=== PATIENT | female | born 1955 | race Caucasian/White ===

== ENCOUNTER → 2020-11-04 11:15 | Outpatient (CLI) | payer OTHER, MEDICARE, SELFPAY ==
[2020-11-04 12:02] LABS: Basophils # 0.1 K/mm3 (0-0.2); Basophils % 0.5 % (0.1-2.0); Eosinophils # 0.4 K/mm3 (0.0-0.4); Eosinophils % 3.9 % (0.1-12.0); Hemoglobin 14.9 g/dL (12.2-16.2); Lymphocytes # 2.1 K/mm3 (0.7-4.5); Lymphocytes % 20.4 % (10-50); Mean Corpuscular HGB Conc 33.2 g/dL (31.8-35.4); Mean Corpuscular Hemoglobin 26.2 pg (27.0-31.2); Mean Corpuscular Volume 79.1 fl (81-99); Mean Platelet Volume 7.8 fl (7.4-10.4); Monocytes # 0.5 K/mm3 (0.1-1.0); Neutrophils # 7.2 K/mm3 (1.8-7.8); Neutrophils % 70.2 % (37.0-80.0); Platelet Count 339 K/mm3 (142-424); Red Blood Count 5.69 M/mm3 (4.20-5.40); Red Cell Distribution Width 15.2 % (11.5-17.5); White Blood Count 10.3 K/mm3 (4.8-10.8)
== END ==
PROVIDERS: PCP Family Medicine; Visit Provider Nurse Practitioner
DX: Z20.822 Contact with and (suspected) exposure to COVID-19 (principal)
CPT/HCPCS: 36415; 85025; 87275; 87276; U0003

== ENCOUNTER → 2022-06-08 15:25 | Outpatient (CLI) | payer OTHER, MEDICARE, SELFPAY ==
[2022-06-08 18:59] LABS: Alanine Aminotransferase 16 U/L (12-78); Albumin Level 4.1 g/dl (3.5-5.0); Albumin/Globulin Ratio 1.4 (1.1-1.8); Alkaline Phosphatase 151 U/L (38-126); Anion Gap 17.1 mEq/L (5-15); Aspartate Amino Transferase 23 U/L (14-36); Bilirubin,Total 0.5 mg/dl (0.2-1.3); Blood Urea Nitrogen 12 mg/dl (7-17); Calcium 8.9 mg/dl (8.4-10.2); Carbon Dioxide 29 mmol/L (22.0-30.0); Chloride 97 mmol/L (98-107); Chol/HDL Ratio 4.3 (1-3.5); Cholesterol 154 mg/dl (140-200); Estimated Glomerular Filt Rate 99 ml/min (>60); GFR (African American) 120 ML/MIN (>60); Globulin 2.9 g/dL (1.3-3.2); Glucose 145 mg/dl (74-100); HDL Cholesterol 36 mg/dl (40-60); Potassium 5.1 mmoL/L (3.5-5.1); Sodium 138 mmol/L (136-145); Triglycerides 186 mg/dl (30-150); VLDL Cholesterol 37 mg/dL (0-40)
[2022-06-08 19:10] LABS: Direct LDL Cholesterol 88.03 mg/dL (100-129)
[2022-06-08 19:31] LABS: Thyroid Stimulating Hormone 3.65 uIU/mL (0.465-4.68)
[2022-06-08 19:44] LABS: Hemoglobin A1C 6.6 % (4.0-6.0)
[2022-06-08 19:49] LABS: Vitamin B12 261 pg/mL (239-931)
[2022-06-08 20:19] LABS: Basophils # 0.1 K/mm3 (0-0.2); Basophils % 0.8 % (0.1-2.0); Eosinophils # 0.2 K/mm3 (0.0-0.4); Hematocrit 43.8 % (37.0-47.0); Hemoglobin 14.4 g/dL (12.2-16.2); Lymphocytes # 1.2 K/mm3 (0.7-4.5); Lymphocytes % 16.8 % (10-50); Mean Corpuscular HGB Conc 32.7 g/dL (31.8-35.4); Mean Corpuscular Hemoglobin 26.9 pg (27.0-31.2); Mean Corpuscular Volume 82.1 fl (81-99); Mean Platelet Volume 10.1 fl (7.4-10.4); Monocytes # 0.5 K/mm3 (0.1-1.0); Monocytes % 6.5 % (1.7-9.3); Neutrophils # 5.4 K/mm3 (1.8-7.8); Neutrophils % 72.9 % (37.0-80.0); Platelet Count 255 K/mm3 (142-424); Red Blood Count 5.34 M/mm3 (4.20-5.40); Red Cell Distribution Width 15.7 % (11.5-17.5); White Blood Count 7.4 K/mm3 (4.8-10.8)
== END ==
PROVIDERS: PCP Nurse Practitioner; Visit Provider Nurse Practitioner
DX: E11.9 Type 2 diabetes mellitus without complications (principal); E78.5 Hyperlipidemia, unspecified; I10 Essential (primary) hypertension; Z79.84 Long term (current) use of oral hypoglycemic drugs
CPT/HCPCS: 80053; 80061; 82607; 83036; 84443; 85025

== ENCOUNTER → 2022-07-23 08:35 | Outpatient (CLI) | payer OTHER, MEDICARE, SELFPAY ==
[2022-07-23 18:22] LABS: Adenovirus,PCR Not Detected (NotDetected); Bordetella Pertussis Not Detected (NotDetected); Chlamydophila Pneumoniae, PCR Not Detected (NotDetected); Coronavirus 19, PCR Not Detected (NotDetected); Coronavirus 229E Not Detected (NotDetected); Coronavirus NL63 Not Detected (NotDetected); Coronavirus OC43 Not Detected (NotDetected); Coronovirus HKU1,PCR Not Detected (NotDetected); Human Metapneumovirus Not Detected (NotDetected); Influenza A, PCR Not Detected (NotDetected); Influenza AH1, 2009 Not Detected (NotDetected); Influenza AH1, PCR Not Detected (NotDetected); Influenza AH3,PCR Not Detected (NotDetected); Influenza B, PCR Not Detected (NotDetected); Mycoplasma Pneumoniae, PCR Not Detected (NotDetected); Parainfluenza 1, PCR Not Detected (NotDetected); Parainfluenza 2, PCR Not Detected (NotDetected); Parainfluenza 3, PCR Not Detected (NotDetected); Parainfluenza 4, PCR Not Detected (NotDetected); Rhinovirus/Enterovirus Not Detected (NotDetected)
[2022-07-24 15:24] LABS: Respiratory Syncytial Virus Detected (NotDetected)
== END ==
PROVIDERS: PCP Nurse Practitioner; Visit Provider Nurse Practitioner
DX: J06.9 Acute upper respiratory infection, unspecified (principal); B97.4 Respiratory syncytial virus as the cause of diseases classified elsewhere; R53.83 Other fatigue; H66.92 Otitis media, unspecified, left ear; R05.9 Cough, unspecified; R06.2 Wheezing
CPT/HCPCS: 87581; 87632; 87798; C9803; U0003; U0005

== ENCOUNTER → 2022-08-04 12:10 | Outpatient (CLI) | payer OTHER, MEDICARE, SELFPAY ==
[2022-08-04 18:32] LABS: Adenovirus,PCR Not Detected (NotDetected); Bordetella Pertussis Not Detected (NotDetected); Chlamydophila Pneumoniae, PCR Not Detected (NotDetected); Coronavirus 19, PCR Not Detected (NotDetected); Coronavirus 229E Not Detected (NotDetected); Coronavirus NL63 Not Detected (NotDetected); Coronavirus OC43 Not Detected (NotDetected); Coronovirus HKU1,PCR Not Detected (NotDetected); Human Metapneumovirus Not Detected (NotDetected); Influenza A, PCR Not Detected (NotDetected); Influenza AH1, 2009 Not Detected (NotDetected); Influenza AH1, PCR Not Detected (NotDetected); Influenza AH3,PCR Not Detected (NotDetected); Influenza B, PCR Not Detected (NotDetected); Mycoplasma Pneumoniae, PCR Not Detected (NotDetected); Parainfluenza 1, PCR Not Detected (NotDetected); Parainfluenza 2, PCR Not Detected (NotDetected); Parainfluenza 3, PCR Not Detected (NotDetected); Parainfluenza 4, PCR Not Detected (NotDetected); Rhinovirus/Enterovirus Not Detected (NotDetected)
[2022-08-04 18:43] LABS: Basophils % 0.3 % (0.1-2.0); Eosinophils # 0.1 K/mm3 (0.0-0.4); Eosinophils % 0.7 % (0.1-12.0); Hematocrit 46.1 % (37.0-47.0); Hemoglobin 15.2 g/dL (12.2-16.2); Lymphocytes # 1.4 K/mm3 (0.7-4.5); Lymphocytes % 10.2 % (10-50); Mean Corpuscular HGB Conc 32.9 g/dL (31.8-35.4); Mean Corpuscular Hemoglobin 27.1 pg (27.0-31.2); Mean Corpuscular Volume 82.3 fl (81-99); Mean Platelet Volume 10.3 fl (7.4-10.4); Monocytes # 0.9 K/mm3 (0.1-1.0); Monocytes % 6.4 % (1.7-9.3); Neutrophils # 11.3 K/mm3 (1.8-7.8); Neutrophils % 82.3 % (37.0-80.0); Platelet Count 276 K/mm3 (142-424); Red Blood Count 5.61 M/mm3 (4.20-5.40); Red Cell Distribution Width 15.7 % (11.5-17.5); White Blood Count 13.7 K/mm3 (4.8-10.8)
[2022-08-05 06:58] LABS: Respiratory Syncytial Virus Detected (NotDetected)
== END ==
PROVIDERS: PCP Nurse Practitioner; Visit Provider Nurse Practitioner
DX: J06.9 Acute upper respiratory infection, unspecified (principal); J21.0 Acute bronchiolitis due to respiratory syncytial virus
CPT/HCPCS: 85025; 87581; 87632; 87798; C9803; U0003; U0005

== ENCOUNTER → 2023-05-17 09:56 | Outpatient (CLI) | payer MEDICARE, SELFPAY ==
[2023-05-17 18:19] LABS: Basophils % 0.3 % (0.1-2.0); Eosinophils # 0.2 K/mm3 (0.0-0.4); Hematocrit 48.2 % (37.0-47.0); Lymphocytes # 1.1 K/mm3 (0.7-4.5); Lymphocytes % 13.6 % (10-50); Mean Corpuscular HGB Conc 31.2 g/dL (31.8-35.4); Mean Corpuscular Hemoglobin 25.3 pg (27.0-31.2); Mean Corpuscular Volume 81.1 fl (81-99); Mean Platelet Volume 9.8 fl (7.4-10.4); Monocytes # 0.5 K/mm3 (0.1-1.0); Monocytes % 6.3 % (1.7-9.3); Neutrophils # 6.1 K/mm3 (1.8-7.8); Neutrophils % 76.8 % (37.0-80.0); Platelet Count 255 K/mm3 (142-424); Red Blood Count 5.93 M/mm3 (4.20-5.40); Red Cell Distribution Width 16.2 % (11.5-17.5)
[2023-05-17 18:37] LABS: Alanine Aminotransferase 21 U/L (12-78); Albumin Level 4.1 g/dl (3.5-5.0); Albumin/Globulin Ratio 1.2 (1.1-1.8); Alkaline Phosphatase 110 U/L (38-126); Anion Gap 12.8 mEq/L (5-15); Aspartate Amino Transferase 26 U/L (14-36); Bilirubin,Total 0.5 mg/dl (0.2-1.3); Blood Urea Nitrogen 11 mg/dl (7-17); Calcium 9.1 mg/dl (8.4-10.2); Carbon Dioxide 29 mmol/L (22.0-30.0); Chloride 102 mmol/L (98-107); Chol/HDL Ratio 4.6 (1-3.5); Cholesterol 156 mg/dl (140-200); Estimated Glomerular Filt Rate 122 ml/min (>60); GFR (African American) 148 ML/MIN (>60); Globulin 3.4 g/dL (1.3-3.2); Glucose 140 mg/dl (74-100); HDL Cholesterol 34 mg/dl (40-60); Potassium 4.8 mmoL/L (3.5-5.1); Sodium 139 mmol/L (136-145); Total Protein,Serum 7.5 g/dl (6.3-8.2); Triglycerides 182 mg/dl (30-150); VLDL Cholesterol 36 mg/dL (0-40)
[2023-05-17 18:48] LABS: Direct LDL Cholesterol 90.69 mg/dL (100-129)
[2023-05-17 19:05] LABS: Thyroid Stimulating Hormone 2.93 uIU/mL (0.465-4.68)
[2023-05-17 19:24] LABS: Vitamin B12 307 pg/mL (239-931)
[2023-05-17 19:31] LABS: Creatinine,Urine Random 106 mg/dL (Not Estab.)
[2023-05-17 19:32] LABS: Microalbumin/Creatinine Ratio 19.4
[2023-05-17 19:47] LABS: Hemoglobin A1C 6.3 % (4.0-6.0)
== END ==
PROVIDERS: PCP Nurse Practitioner; Visit Provider Nurse Practitioner
DX: E11.40 Type 2 diabetes mellitus with diabetic neuropathy, unspecified (principal); E78.5 Hyperlipidemia, unspecified; I10 Essential (primary) hypertension; J30.9 Allergic rhinitis, unspecified; Z79.84 Long term (current) use of oral hypoglycemic drugs
CPT/HCPCS: 80053; 80061; 82043; 82570; 82607; 83036; 84443; 85025

== ENCOUNTER 2024-03-13 10:21 | Outpatient (CLI) | payer MEDICARE, SELFPAY ==
[2024-03-13 18:33] LABS: Basophils % 0.2 % (0.1-2.0); Eosinophils # 0.1 K/mm3 (0.0-0.4); Eosinophils % 1.8 % (0.1-12.0); Hemoglobin 14.2 g/dL (12.2-16.2); Lymphocytes # 0.9 K/mm3 (0.7-4.5); Lymphocytes % 11.4 % (10-50); Mean Corpuscular HGB Conc 32.2 g/dL (31.8-35.4); Mean Corpuscular Volume 83.8 fl (81-99); Mean Platelet Volume 10.1 fl (7.4-10.4); Monocytes # 0.5 K/mm3 (0.1-1.0); Monocytes % 6.4 % (1.7-9.3); Neutrophils # 6.2 K/mm3 (1.8-7.8); Neutrophils % 80.3 % (37.0-80.0); Platelet Count 279 K/mm3 (142-424); Red Blood Count 5.25 M/mm3 (4.20-5.40); Red Cell Distribution Width 15.8 % (11.5-17.5); White Blood Count 7.7 K/mm3 (4.8-10.8)
[2024-03-13 19:38] LABS: Creatinine,Urine Random 128 mg/dL (Not Estab.); Hemoglobin A1C 6.8 % (4.0-6.0)
[2024-03-13 22:02] LABS: Alanine Aminotransferase 20 U/L (12-78); Albumin Level 3.7 g/dl (3.5-5.0); Albumin/Globulin Ratio 1.1 (1.1-1.8); Alkaline Phosphatase 116 U/L (38-126); Anion Gap 12.2 mEq/L (5-15); Aspartate Amino Transferase 25 U/L (14-36); Bilirubin,Total 0.6 mg/dl (0.2-1.3); Blood Urea Nitrogen 10 mg/dl (7-17); Calcium 9.1 mg/dl (8.4-10.2); Carbon Dioxide 28 mmol/L (22.0-30.0); Chloride 100 mmol/L (98-107); Chol/HDL Ratio 3.7 (1-3.5); Cholesterol 134 mg/dl (140-200); Estimated Glomerular Filt Rate 122 ml/min (>60); GFR (African American) 148 ML/MIN (>60); Globulin 3.3 g/dL (1.3-3.2); Glucose 142 mg/dl (74-100); HDL Cholesterol 36 mg/dl (40-60); Potassium 4.2 mmoL/L (3.5-5.1); Sodium 136 mmol/L (136-145); Triglycerides 186 mg/dl (30-150); VLDL Cholesterol 37 mg/dL (0-40)
[2024-03-13 22:13] LABS: Direct LDL Cholesterol 66.33 mg/dL (100-129)
[2024-03-13 22:51] LABS: Vitamin B12 276 pg/mL (239-931)
== END 2024-03-13 23:59 | disposition home or self-care (01) ==
LOC: LAB.DROPOF 03-14 10:21
PROVIDERS: PCP Nurse Practitioner; Visit Provider Nurse Practitioner
DX: E11.9 Type 2 diabetes mellitus without complications (principal); E78.5 Hyperlipidemia, unspecified; I10 Essential (primary) hypertension; J30.9 Allergic rhinitis, unspecified
CPT/HCPCS: 80050; 80053; 80061; 82043; 82570; 82607; 83036; 84443; 85025

== ENCOUNTER 2024-04-19 12:08 | Outpatient (CLI) | payer MEDICARE, SELFPAY ==
[2024-04-19 18:22] LABS: Coronavirus 19, PCR Not Detected (NotDetected); Influenza A, PCR Not Detected (NotDetected); Influenza B, PCR Not Detected (NotDetected)
== END 2024-04-19 23:59 | disposition home or self-care (01) ==
LOC: LAB.DROPOF 04-20 10:13
PROVIDERS: PCP Nurse Practitioner; Visit Provider Nurse Practitioner
DX: J06.9 Acute upper respiratory infection, unspecified (principal)
CPT/HCPCS: 87636

== ENCOUNTER 2024-08-15 14:15 | Outpatient (CLI) | payer MEDICARE, SELFPAY ==
[2024-08-15 18:20] LABS: Alanine Aminotransferase 23 U/L (12-78); Albumin/Globulin Ratio 1.4 (1.1-1.8); Alkaline Phosphatase 111 U/L (38-126); Amylase 49 U/L (30-110); Anion Gap 13.4 mEq/L (5-15); Aspartate Amino Transferase 33 U/L (14-36); Bilirubin,Total 0.7 mg/dl (0.2-1.3); Blood Urea Nitrogen 12 mg/dl (7-17); Calcium 8.8 mg/dl (8.4-10.2); Carbon Dioxide 30 mmol/L (22.0-30.0); Chloride 93 mmol/L (98-107); Estimated Glomerular Filt Rate 99 ml/min (>60); GFR (African American) 120 ML/MIN (>60); Globulin 2.8 g/dL (1.3-3.2); Glucose 101 mg/dl (74-100); Lipase 109 U/L (23-300); Potassium 4.4 mmoL/L (3.5-5.1); Sodium 132 mmol/L (136-145); Total Protein,Serum 6.8 g/dl (6.3-8.2)
[2024-08-15 18:23] LABS: Basophils % 0.2 % (0.1-2.0); Eosinophils % 0.7 % (0.1-12.0); Hematocrit 44.9 % (37.0-47.0); Hemoglobin 14.5 g/dL (12.2-16.2); Lymphocytes # 0.8 K/mm3 (0.7-4.5); Lymphocytes % 13.7 % (10-50); Mean Corpuscular HGB Conc 32.3 g/dL (31.8-35.4); Mean Corpuscular Hemoglobin 25.1 pg (27.0-31.2); Mean Corpuscular Volume 77.8 fl (81-99); Mean Platelet Volume 10.6 fl (7.4-10.4); Monocytes # 0.5 K/mm3 (0.1-1.0); Monocytes % 7.5 % (1.7-9.3); Neutrophils # 4.7 K/mm3 (1.8-7.8); Neutrophils % 77.4 % (37.0-80.0); Platelet Count 220 K/mm3 (142-424); Red Blood Count 5.77 M/mm3 (4.20-5.40); Red Cell Distribution Width 15.9 % (11.5-17.5)
== END 2024-08-15 23:59 | disposition home or self-care (01) ==
LOC: LAB.DROPOF 08-16 13:52
PROVIDERS: PCP Nurse Practitioner; Visit Provider Nurse Practitioner
DX: R19.7 Diarrhea, unspecified (principal); R10.9 Unspecified abdominal pain
CPT/HCPCS: 80053; 82150; 83690; 85025; 87086

== ENCOUNTER 2025-06-04 10:05 | Outpatient (CLI) | payer MEDICARE, SELFPAY ==
[2025-06-04 16:17] LABS: Hematocrit 43.3 % (37.0-47.0); Hemoglobin 13.8 g/dL (12.2-16.2); Immature Granulocytes % 0.4 %; Mean Corpuscular HGB Conc 31.9 g/dL (31.8-35.4); Mean Corpuscular Hemoglobin 26.0 pg (27.0-31.2); Mean Corpuscular Volume 81.7 fl (81-99); Nucleated Red Blood Cells % 0 %; Platelet Count 247 K/mm3 (142-424); Red Blood Count 5.30 M/mm3 (4.20-5.40); Red Cell Distribution Width-SD 47.7 fL; White Blood Count 7.5 K/mm3 (4.8-10.8)
[2025-06-04 17:36] LABS: Alanine Aminotransferase 16 U/L (12-78); Albumin Level 3.3 g/dl (3.5-5.0); Albumin/Globulin Ratio 1.0 (1.1-1.8); Alkaline Phosphatase 123 U/L (38-126); Anion Gap 11.4 mEq/L (5-15); Aspartate Amino Transferase 21 U/L (14-36); Bilirubin,Total 0.6 mg/dl (0.2-1.3); Blood Urea Nitrogen 12 mg/dl (7-17); Calcium 8.8 mg/dl (8.4-10.2); Carbon Dioxide 28 mmol/L (22.0-30.0); Chloride 99 mmol/L (98-107); Cholesterol 139 mg/dl (140-200); Creatinine,Serum 0.60 mg/dl (0.52-1.04); Estimated Glomerular Filt Rate 99 ml/min (>60); GFR (African American) 119 ML/MIN (>60); Globulin 3.3 g/dL (1.3-3.2); Glucose 132 mg/dl (74-100); HDL Cholesterol 34 mg/dl (40-60); Potassium 4.4 mmoL/L (3.5-5.1); Sodium 134 mmol/L (136-145); Total Protein,Serum 6.6 g/dl (6.3-8.2); Triglycerides 160 mg/dl (30-150)
[2025-06-04 18:06] LABS: Thyroid Stimulating Hormone 2.18 uIU/mL (0.465-4.68)
[2025-06-04 18:25] LABS: Vitamin B12 240 pg/mL (239-931)
[2025-06-05 03:20] LABS: Hemoglobin A1C 6.2 % (4.0-6.0)
[2025-06-05 10:04] LABS: Hepatitis C Ab Qual. W/ RFX NEGATIVE (Negative)
--- OUTSIDE RECORDS SUMMARY | 2025-06-05 10:37 | XMS_ITS | Clinical Summary ---
Author Organization [facility] Address [facility] [place] [address] Phone Care Team Providers Care Manager Sterile Processing Name Role Phone Pierre Mendoza Primary Care Provider [phone] Allergies Active Allergy Reactions Criticality Noted Date Comments Amoxicillin Nausea And Vomiting 09/22/2013 Cefdinir Anaphylaxis High 07/07/2024 Xame to ER and treated for allergic reaction Medications metoprolol (LOPRESSOR) 50 mg tablet Take by mouth 2 times daily. Active metFORMIN (GLUCOPHAGE) 500 mg tablet Take 1,000 mg by mouth 2 times daily. Active ezetimibe (ZETIA) 10 mg Oral Tablet Take 10 mg by mouth daily. Active cetirizine HCl/pseudoephed rine (ZYRTEC-D ORAL) Take 5 mg by mouth daily. afternoon Active simvastatin (ZOCOR) 20 mg Oral Tablet Take 20 mg by mouth nightly. Active hydrOXYzine (ATARAX) 25 mg Oral Tablet Take 25 mg by mouth every 6 hours as needed for Itching. Active fluticasone propionate (FLONASE NASL) by Nasal route nightly. Active difluprednate (DUREZOL) 0.05 % Opht Drops Place 1 Drop into the left eye 2 times daily. Can substitute Inveltys or Prednisolone 1 mL Active Additional Information Patient not taking.Reason: Pt electing to not take the medication, Reported on 07/07/2024 nepafenac (ILEVRO) 0.3 % Opht Drops, Suspension Place 1 Drop into the left eye daily. Can substitute Bromsite or Prolensa 3 mL 0 Active Additional Information Patient not taking.Reason: Pt electing to not take the medication, Reported on 07/07/2024 nepafenac (ILEVRO) 0.3 % Opht Drops, Suspension Place 1 Drop into the right eye daily. Can substitute Bromsite or Prolensa 3 mL 0 Active Additional Information Patient not taking.Reason: Pt electing to not take the medication, Reported on 07/07/2024 difluprednate (DUREZOL) 0.05 % Opht Drops Place 1 Drop into the right eye 2 times daily. Can substitute Inveltys or Prednisolone 1 mL 0 Active Additional Information Patient not taking.Reason: Pt electing to not take the medication, Reported on 07/07/2024 promethazine-de xtromethorphan (PROMETHAZINE-D M) 6.25-15 mg/5 mL Oral SyrupIndication s:Acute cough Take 5 mL by mouth every 6 hours as needed (for cough). 150 mL 4 Active EPINEPHrine (EPIPEN) 0.3 mg/0.3 mL Inj Auto-Injector Inject 0.3 mL into the muscle as needed for Anaphylaxis. Inject the contents of one pen (0.3 mL) into the muscle in the middle of the outer thigh as directed for anaphylaxis.Ca ll 911 after administering. May repeat dose in 5-15 minutes if symptoms persist or worsen. 2 Each 4 Active Active Problems No known active problems Immunizations Immunization Administration Dates Next Due Influenza High Dose 05/22/2024, 2,04/30/2020,2018 Influenza Vaccine Quadrivalent 05/13/2018,2016 Pneumococcal Conjugate Vacci ne 13 Valent 08/22/2020 Quadrivalent Influenza High Dose 06/14/2023,03/2021 Tdap 08/18/2018 Surgical History Surgery Date Site/Laterality Comments CHOLECYSTECTOMY 08/09/1998 - 08/08/1999 KIDNEY STONE SURGERY WISDOM TOOTH EXTRACTION TONSILLECTOMY AND ADENOIDECTOMY 08/09/1960 - 08/08/1961 CATARACT REMOVAL 07/03/2020 Left LEFT EYE CATARACT EXTRACTION WITH PHACOEMULSIFICATION AND INTRAOCULAR LENS; Surgeon: Cesar Fletcher MD; Location: [facility]; Service: Ophthalmology Medical devices from this surgery are in the Medical Devices section. CATARACT REMOVAL 07/17/2020 Right RIGHT EYE CATARACT EXTRACTION WITH PHACOEMULSIFICATION AND INTRAOCULAR LENS; Surgeon: Cesar Fletcher MD; Location: [facility]; Service: Ophthalmology Medical devices from this surgery are in the Medical Devices section. Medical History Medical History Date Comments Hypertension Chronic UTI History of kidney stones Diabetes mellitus (HCC) Hyperlipidemia Anxiety Family History Medical History Relation Name Comments Heart Attack Maternal Grandfather Cancer Maternal Grandmother bladder Heart Attack Mother Leukemia Paternal Grandmother Relation Name Status Comments Father Maternal Grandfather Maternal Grandmother Mother Paternal Grandfather Paternal Grandmother Social History Tobacco Use Types Packs/Day Years Used Date Smoking Tobacco: Every Day Cigarettes 1 47 Smokeless Tobacco: Never Tobacco Cessation:Counseling Given: Yes Alcohol Use Standard Drinks/Week Comments No 0 (1 standard drink = 0.6 oz pur e alcohol) Sexually Active Control Partners Comments Yes Male Comments No Sex and Gender Information Value Date Recorded Sex Assigned at Not on file Legal Sex Female 12:21 AM EDT Gender Identity Not on file Sexual Orientation Not on file Obstetrics History Para Term AB IAB SAB Ectopic Multiple Livin g Live Births 0 Last Filed Vital Signs Vital Sign Reading Time Taken Comments Blood Pressure 142/70 07/07/2024 5:44 PM EST Pulse 98 07/07/2024 6:05 PM EST Temperature 36.8 C (98.3 F) 07/07/2024 5:44 PM EST Respiratory Rate 20 07/07/2024 6:05 PM EST Oxygen Saturation 95% 07/07/2024 6:05 PM EST Inhaled Oxygen Concentration - - Weight 83.5 kg (184 lb) 07/07/2024 3:35 PM EST Height 177.8 cm (5' 10 ) 07/07/2024 3:35 PM EST Body Mass Index 26.4 07/07/2024 3:35 PM EST Plan of Treatment Health Maintenance Due Date Last Done Comments Wellness Exam Medicare 1958 Hepatitis C Screening 1971 Cologuard 1998 FIT 1998 Sigmoidoscopy 1998 Virtual Colonography 1998 Low Dose Lung Cancer Screening 2003 Zoster (1 of 2) 2003 Pneumococcal Vaccine 50+ (2 of 2 - PPSV23, PCV20, or PCV21) 10/17/2020 08/22/2020 Colon Cancer Screening 03/17/2022 Colonoscopy 03/17/2022 03/17/2017 COVID-19 Vaccine (1 - season) 2025 Influenza Vaccine (#1) 2025 4, 06/14/2023, 05/18/2022, Additional history exists Breast Cancer Screening 07/04/2026 07/04/20 24, 04/29/2023, 04/28/2022, Additional history exists DTaP/TDaP/Td (2 - Td or Tdap) 08/18/2028 08/18/2018 Bone Density Screening Completed 11/12/2017 Diabetic Eye Exam Discontinued 06/08/2024 Hepatitis B Vaccine Aged Out No longe r eligible based on patient's age to complete this topic Meningococcal B Vaccine Aged Out No l onger eligible based on patient's age to complete this topic Medical Devices Implanted Type Area Fire Management Technician Device Identifier Shelf Expiration Date Model / Serial / Lot Lens Iol 0 D +14.5 Rita +2.25 Cyl Bcnvx 13mm 6mm Pc 1 Pc Fld - [id number] Implanted:Qty: 1 on 07/03/2020 by Cesar Fletcher MD at [facility] Left: Eye DMITRY LAB:SURG [id number] 05/08/2021 [id number] .145 / [id number] / Lens Iol 0 D +13.5 Rita +1.5 Cyl Bcnvx 13mm 6mm Pc 1 Pc Fld - [id number] Implanted:Qty: 1 on 07/17/2020 by Cesar Fletcher MD at [facility] Right: Eye DMITRY LAB:SURG [id number] 04/08/2024 [id number] / [id number] / Procedures Procedure Name Priority Date/Time Associated Diagnosis Comments MM MAMMO DIGITAL MIKE SCREEN BILAT Routine 07/04/2024 2:52 PM EST Other screening mammogram HM DIABETES EYE EXAM Routine 06/08/2024 3:22 PM EDT DX BONE DENSITY AXIAL SKELETON Routine 11/12/2017 10:02 AM EDT Health care maintenance from Last 3 Months or Most Recently Relevant to Health Maintenance Results * MM MAMMO DIGITAL MIKE SCREEN BILAT (07/04/2024 2:52 PM EST) Anatomical Region Laterality Modality Breast Bilateral Mammography 07/04/2024 2:52 PM EST Impressions 07/04/2024 3:21 PM EST Negative ([id number]) RECOMMENDATION: Routine Screening Mammogram in 1 Year Bilateral No additional recommendation No additional laterality COMMENTS: Narrative 07/04/2024 3:21 PM EST EXAM: MM MAMMO DIGITAL MIKE SCREEN BILAT EXAM DATE: 07/04/2024 2:52 PM INDICATION: Z12.31-Encounter for screening mammogram for malignant neoplasm of [id number] COMPARISON STUDIES: Compared with prior studies the most recent being 04/29/2023 MM MAMMO DIGITAL MIKE SCREEN BILAT at [facility] 04/28/2022 MM MAMMO DIGITAL MIKE SCREEN BILAT at [facility] 04/07/2021 MM MAMMO DIGITAL MIKE SCREEN BILAT at [facility] TISSUE DENSITY: The breasts are heterogeneously dense, which may obscure small masses. FINDINGS: No mammographic evidence of malignancy. Procedure Note Alessandro Zazueta MD - 07/04/2024 EXAM: MM MAMMO DIGITAL MIKE SCREEN BILAT EXAM DATE: 07/04/2024 2:52 PM INDICATION: Z12.31-Encounter for screening mammogram for malignantneoplasm of [id number] COMPARISON STUDIES: Compared with prior studies the most recent being 04/29/2023 MM MAMMO DIGITAL MIKE SCREEN BILAT at [facility] 04/28/2022 MM MAMMO DIGITAL MIKE SCREEN BILAT at [facility] 04/07/2021 MM MAMMO DIGITAL MIKE SCREEN BILAT at [facility] TISSUE DENSITY: The breasts are heterogeneously dense, which may obscuresmall masses. FINDINGS: No mammographic evidence of malignancy. IMPRESSION: Negative ([id number]) RECOMMENDATION: Routine Screening Mammogram in 1 Year Bilateral No additional recommendation No additional laterality COMMENTS: Tiffanie Isidra JonShaggy CUSTOMER LOYALTY REPRESENTATIVE IMG MAMMOGRAPHY ORDERABLES Fin al Result * DIABETES EYE EXAM (06/08/2024 3:22 PM EDT) Left Diabetic Retinopathy Not Present Not Present Present/Not Present SEP OFFICE Right Diabetic Retinopathy Not Present Not Present Present/Not Present SEP OFFICE [facility] Provider HEALTH MAINTENANCE Edited Re sult - Final SEP OFFICE * DX BONE DENSITY AXIAL SKELETON (11/12/2017 10:02 AM EDT) Anatomical Region Laterality Modality Dexa Scan 11/12/2017 Narrative 11/12/2017 12:46 PM EDT Indication: The patient is a post-menopausal female under age 65 with clinical risk factors for an osteoporotic fracture that requires a bone density assessment. Study was performed on Medipacs 5. Bone Density: Region BMD T-score Z-score AP Spine (L1-L4) 0.951 -0.9 0.8 Femoral Neck (Left) 0.718 -1.2 0.3 Total Hip (Left) 0.852 -0.7 0.4 Femoral Neck (Right) 0.662 -1.7 -0.2 Total Hip (Right) 0.871 -0.6 0.6 World Health Organization criteria for BMD interpretation classify patients as: Normal (T-score at or above -1.0), Low Bone Density (T-score between -1.0 and -2.5), or Osteoporotic (T-score at or below -2.5). T Scores are reported in Postmenopausal women and in men age 50 and older. Z-scores are reported in females prior to menopause and in males younger than age 50. Clinical Information Provided by Patient: Smokes. Has had or currently has the following medical conditions: Diabetes Mellitus Patient maximum height was 70 Menopause Age: 50 Patient is post menopausal Interpretation: Bone mineral density is in the low bone density range. Medical evaluation for secondary causes of low bone mineral density may be appropriate. A minimum of two years may be required between bone density studies due to inherent testing precision limitations. Intervals between BMD testing should be determined according to each patient's clinical status: typically one year after initiation or change in therapy is appropriate, with longer intervals once therapeutic effect is established. The spine portion of the study is limited by visual hypertrophic changes. Reported by: Marce Santiago PA-C, [facility], CCD on 11/12/2017 12:11:00 PM. Hortencia [facility] DEXA ORDERABLES Fin al Result from Last 3 Months or Most Recently Relevant to Health Maintenance Insurance Care Teams Manager Sterile Processing Relationship Specialty Start Date End Date Pierre Mendoza [id number] [place] [facility] [place] [address] PCP - General Family Medicine 09/22/1993
== END 2025-06-04 23:59 ==
LOC: LAB.DROPOF 06-05 10:25
PROVIDERS: PCP Nurse Practitioner; Visit Provider Nurse Practitioner
DX: E78.5 Hyperlipidemia, unspecified (principal); I10 Essential (primary) hypertension; Z11.59 Encounter for screening for other viral diseases; E11.40 Type 2 diabetes mellitus with diabetic neuropathy, unspecified
CPT/HCPCS: 80053; 80061; 82043; 82570; 82607; 83036; 84443; 85025; 86803; 87389